=== PATIENT | male | born 1990 | race Caucasian/White ===

== ENCOUNTER 2017-10-26 19:53 | Emergency (ER) | payer OTHER ==
[~2017-10-26] VITALS: Ht 180.3 cm; Wt 105.7 kg
[2017-10-26] MEDS ORDERED: MOTRIN600 MG PO (21:15)
[2017-10-26 21:26] VITALS: BP 136/87
== END 2017-10-26 21:26 | disposition home or self-care (01) ==
LOC: EME 19:53
DX: S83.92XA Sprain of unspecified site of left knee, initial encounter (principal); Y35.91XA Legal intervention, means unspecified, law enforcement official injured, initial encounter; Y92.149 Unspecified place in prison as the place of occurrence of the external cause; Y99.0 Civilian activity done for income or pay; F17.200 Nicotine dependence, unspecified, uncomplicated; Z88.1 Allergy status to other antibiotic agents
CPT/HCPCS: 73564; 99281; 99283